=== PATIENT | male | born 1975 | race Caucasian/White ===

== ENCOUNTER 2017-05-24 13:54 | Day surgery (SDC) | payer OTHER ==
[2017-05-24] MEDS ORDERED: MIDAZOLAM 1 MG/ML 2 ML INJ (16:24)
[2017-05-24] MEDS ORDERED: PROPOFOL 20 ML (16:24)
[2017-05-24] MEDS ORDERED: FENTAnyl 50 MCG/ML VIAL (16:25)
== END 2017-05-24 19:01 | disposition home or self-care (01) ==
LOC: GIL 13:54
DX: K29.50 Unspecified chronic gastritis without bleeding (principal); K44.9 Diaphragmatic hernia without obstruction or gangrene
CPT/HCPCS: 43239